=== PATIENT | female | born 1955 | race Two or more races ===

== ENCOUNTER 2023-06-06 16:22 | Observation (INO) | payer OTHER, MEDICAID ==
[~2023-06-06] VITALS: Ht 165.1 cm; Wt 70.9 kg
[2023-06-06 19:46] LABS: Basophils # (auto) 0 10 ^3/uL (0-0.2); Basophils % (auto) 0.3 % (0.0-2.0); Eosinophils # (auto) 0.2 10 ^3/uL (0-0.8); Eosinophils % (auto) 1.4 % (0.0-7.0); Hemoglobin 13.5 g/dL (12.2-16.2); Lymphocytes # (auto) 3.5 10 ^3/uL (0.4-5.4); Lymphocytes % (auto) 28.1 % (10.0-50.0); Mean Corpuscular Hemoglobin 25.3 pg (28.0-32.0); Mean Corpuscular Hgb Conc. 32.2 g/dL (32.0-36.0); Mean Corpuscular Volume 78.5 fL (80.0-100.0); Monocytes # (auto) 0.6 10 ^3/uL (0-1.3); Monocytes % (auto) 4.9 % (0.0-12.0); Neutrophils # (auto) 8.1 10 ^3/uL (1.6-8.6); Neutrophils % (auto) 65.3 % (37.0-80.0); Nucleated Red Blood Cells % 0.1 %; Red Blood Cells 5.36 10^6/uL (4.0-5.20); White Blood Cell 12.4 10^3/uL (4.4-10.8)
[2023-06-06 19:57] LABS: Chloride 105 mmol/L (98-107); Potassium 4.2 mmol/L (3.5-5.1); Sodium 135 mmol/L (136-145)
[2023-06-06 19:58] LABS: Anion Gap 8 (5-15); Carbon Dioxide 22 mmol/L (20-30)
[2023-06-06 19:59] LABS: Calcium 9.8 mg/dL (8.5-10.1)
[2023-06-06 20:04] LABS: BUN/Creatinine Ratio 21.6 (10.0-20.0); Blood Urea Nitrogen 24 mg/dL (9-23); Glucose 159 mg/dL (74-106)
[2023-06-06 20:15] VITALS: PULSE 117; RESP 17; O2SAT 96
[2023-06-06] MEDS: ONDANSETRON HCL 4 MG/2 ML VIAL IV ONE (20:39)
[2023-06-06] MEDS: MORPHINE SULFATE 4 MG/ML SYR/VIAL IV ONE (20:39)
[2023-06-06] MEDS: CLINDAMYCIN 600MG IV 50 ML IV ONE (20:40)
[2023-06-06] MEDS: SODIUM CHLORIDE 0.9% 500 ML IV ONE (20:40)
[2023-06-06 21:01] LABS: Erythrocyte Sedimentation Rate 36 mm/hr (0-20)
[2023-06-07] MEDS ORDERED: NITROGLYCERIN 0.4 MG SL TAB SL PRN (01:30)
[2023-06-07] MEDS: SODIUM CHLORIDE 0.9% 1,000 ML IV SCH (01:30)
[2023-06-07] MEDS ORDERED: DEXTROSE (50%) 50ML SYRG IV PRN (01:30)
[2023-06-07] MEDS ORDERED: MORPHINE SULFATE INJ 2 MG/ml SYRG IV PRN (01:30)
[2023-06-07 02:16] LABS: Triglycerides 209 mg/dL (< 150)
[2023-06-07 02:17] LABS: LDL Cholesterol 109 mg/dL (< 100)
[2023-06-07 02:19] LABS: Cholesterol 175 mg/dL (< 200); HDL Cholesterol 45 mg/dL (40-59)
[2023-06-07] MEDS ORDERED: IOHEXOL 350 MG/ML 100ML IJ ONE (03:22)
[2023-06-07 06:38] LABS: Basophils # (auto) 0 10 ^3/uL (0-0.2); Eosinophils # (auto) 0.2 10 ^3/uL (0-0.8); Hemoglobin 12.9 g/dL (12.2-16.2)
[2023-06-07 06:42] LABS: Basophils % (auto) 0.3 % (0.0-2.0); Eosinophils % (auto) 2.1 % (0.0-7.0); Hematocrit 39.4 % (36.0-46.0); Lymphocytes # (auto) 3.9 10 ^3/uL (0.4-5.4); Mean Corpuscular Hemoglobin 25.5 pg (28.0-32.0); Mean Corpuscular Hgb Conc. 32.8 g/dL (32.0-36.0); Mean Corpuscular Volume 77.8 fL (80.0-100.0); Monocytes # (auto) 0.6 10 ^3/uL (0-1.3); Monocytes % (auto) 5.6 % (0.0-12.0); Neutrophils # (auto) 5.6 10 ^3/uL (1.6-8.6); Nucleated Red Blood Cells % 0.1 %; Red Blood Cells 5.06 10^6/uL (4.0-5.20); Red Cell Distribution Width 14.4 % (11.8-14.3); White Blood Cell 10.3 10^3/uL (4.4-10.8)
[2023-06-07] MEDS: ACCU-CHEK COMFORT CURVE STRIP VI SCH (07:10)
[2023-06-07] MEDS ORDERED: InsuLIN REG 1unit/0.01ml Soln (100units/ml) ONE (07:11)
[2023-06-07] MEDS: InsuLIN REG 1unit/0.01ml Soln (100units/ml) SC SCH (07:12)
[2023-06-07] MEDS: CLINDAMYCIN 900MG IV 50 ML IV SCH (07:38)
[2023-06-07 08:02] VITALS: PULSE 94; RESP 18; O2SAT 98
[2023-06-07] MEDS: ENOXAPARIN SOD 40 MG/0.4 ML SYRINGE SC SCH (10:04)
[2023-06-07] MEDS: MORPHINE SULFATE INJ 2 MG/ml SYRG IV PRN (10:05)
[2023-06-07] MEDS: ONDANSETRON HCL 4 MG/2 ML VIAL IV PRN (10:15)
[2023-06-07 19:45] VITALS: PULSE 101; RESP 22; O2SAT 93
[2023-06-07 21:50] VITALS: PULSE 106
[2023-06-07 22:00] VITALS: BP 120/62; PULSE 92; RESP 18; TEMP 97.9; O2SAT 97
[2023-06-08 05:00] VITALS: BP 114/57; PULSE 96; RESP 19; TEMP 98.3; O2SAT 100
[2023-06-08 06:44] LABS: Basophils # (auto) 0 10 ^3/uL (0-0.2); Basophils % (auto) 0.4 % (0.0-2.0); Eosinophils # (auto) 0.2 10 ^3/uL (0-0.8); Monocytes # (auto) 0.4 10 ^3/uL (0-1.3)
[2023-06-08 06:47] LABS: Eosinophils % (auto) 2.1 % (0.0-7.0); Hematocrit 35.4 % (36.0-46.0); Hemoglobin 11.6 g/dL (12.2-16.2); Lymphocytes # (auto) 2.5 10 ^3/uL (0.4-5.4); Lymphocytes % (auto) 32.1 % (10.0-50.0); Mean Corpuscular Hemoglobin 25.6 pg (28.0-32.0); Mean Corpuscular Hgb Conc. 32.7 g/dL (32.0-36.0); Mean Corpuscular Volume 78.1 fL (80.0-100.0); Monocytes % (auto) 5.1 % (0.0-12.0); Neutrophils # (auto) 4.7 10 ^3/uL (1.6-8.6); Neutrophils % (auto) 60.3 % (37.0-80.0); Red Blood Cells 4.53 10^6/uL (4.0-5.20); White Blood Cell 7.9 10^3/uL (4.4-10.8)
[2023-06-08 07:30] VITALS: PULSE 92
[2023-06-08 08:54] VITALS: BP 135/46; PULSE 95; RESP 18; TEMP 97.6; O2SAT 98
[2023-06-08 13:00] VITALS: BP 108/67; PULSE 76; RESP 20; TEMP 98; O2SAT 96
[2023-06-08 17:00] VITALS: BP 129/66; PULSE 92; RESP 14; TEMP 98.3; O2SAT 96
[2023-06-08] MEDS ORDERED: CLIN300C70 PO (17:03)
[2023-06-08 18:52] VITALS: BP 129/66; PULSE 92; RESP 14; TEMP 98.3; O2SAT 96
== END 2023-06-08 19:35 | disposition home or self-care (01) ==
LOC: ER 16:22 → EDBD 16:22 → TELE 06-07 01:44 → ER 06-07 01:44 → TELE-CENTR 06-07 02:03
PROVIDERS: ADMIT Hospitalist; ATTEND Student in an Organized Health Care Education/Training Program
DX: L03.115 Cellulitis of right lower limb (principal); L03.116 Cellulitis of left lower limb; I73.9 Peripheral vascular disease, unspecified; E11.51 Type 2 diabetes mellitus with diabetic peripheral angiopathy without gangrene; E11.621 Type 2 diabetes mellitus with foot ulcer; L97.519 Non-pressure chronic ulcer of other part of right foot with unspecified severity; L97.529 Non-pressure chronic ulcer of other part of left foot with unspecified severity; K21.9 Gastro-esophageal reflux disease without esophagitis; E78.5 Hyperlipidemia, unspecified; E11.9 Type 2 diabetes mellitus without complications; I10 Essential (primary) hypertension; F17.210 Nicotine dependence, cigarettes, uncomplicated; Z91.148 Patient's other noncompliance with medication regimen for other reason; Z98.1 Arthrodesis status; Z88.6 Allergy status to analgesic agent; Z88.5 Allergy status to narcotic agent; Z87.19 Personal history of other diseases of the digestive system; Z48.00 Encounter for change or removal of nonsurgical wound dressing; Z79.899 Other long term (current) drug therapy
CPT/HCPCS: 36415; 73700; 73706; 80048; 80061; 82962; 83036; 83605; 85025; 85652; 86141; 87040; 96361; 96365; 96366; 96372; 96375; 96376; 99285; G0378; J1650; J1815; J2270; J2405; J3490; J7030; Q9967